=== PATIENT | female | born 1985 | race African-American/Black ===

== ENCOUNTER 2016-11-02 00:13 | Emergency (ER) | payer MEDICAID ==
[~2016-11-02] VITALS: Ht 170.2 cm; Wt 89.8 kg
[~2016-11-02 00:13] MED LIST: HYDR-971 PO; LEVO125T5 PO; MULT1TAB52 PO; NAPR500T3 PO; PENI500T PO; TRAM50TA PO
[2016-11-02] MEDS ORDERED: IV NORMAL SALINE 1,000ML 1,000 ML IV SCH (00:15)
--- NOTE | 2016-11-02 00:35 | EKG ---
[address] [address] Test Date: 2016-11-02 Test Time: 00:33:54 Pat Name: ALPESH WALTERS Department: Room: Gender: F Piping Supervisor: SELENE : 1985 Requested By: MICHAEL ALCARAZ Order Number: [id number] Reading MD: Measurements Intervals [place] Rate: 94 P: 51 NC: 156 QRS: 49 QRSD: 94 T: 51 QT: 368 QTc: 466 Interpretive Statements SINUS RHYTHM NORMAL ECG RI6.01 Unconfirmed report Compared to ECG 09/15/2015 10:52:36 No significant changes
[2016-11-02 00:41] LABS: BASO # 0.1 x10^3/uL (0.0-0.2); BASO % 1 % (0-3); EOS # 0.1 x10^3/uL (0.0-0.7); EOS % 2 % (0-3); HEMATOCRIT 42.8 % (36.0-47.0); HEMOGLOBIN 14.2 g/dL (12.0-15.5); LYMPH # 3.6 x10^3/uL (1.0-4.8); LYMPH % 53 % (24-48); MEAN CORPUSCULAR HEMOGLOBIN 29 pg (25-35); MEAN CORPUSCULAR HGB CONC 33 g/dL (31-37); MEAN CORPUSCULAR VOLUME 89 fL (79-100); MONO # 0.4 x10^3/uL (0.0-1.1); MONO % 6 % (0-9); NEUT # 2.6 x10^3uL (1.8-7.7); NEUT % 38 % (31-73); PLATELET COUNT 317 x10^3/uL (140-400); RED BLOOD COUNT 4.82 x10^6/uL (3.50-5.40); RED CELL DISTRIBUTION WIDTH 13.5 % (11.5-14.5); WHITE BLOOD COUNT 6.9 x10^3/uL (4.0-11.0)
[2016-11-02] MEDS ORDERED: DEXTROSE 50% 25 GM / 50ML DISP.SYRIN. IV ONE (00:45)
[2016-11-02 00:53] LABS: ALBUMIN 3.6 g/dL (3.4-5.0); CALCIUM 8.2 mg/dL (8.5-10.1); DIRECT BILIRUBIN 0.1 mg/dL (0.0-0.2); GFR 77.7; POTASSIUM 3.4 mmol/L (3.5-5.1); TOTAL BILIRUBIN 0.2 mg/dL (0.2-1.0); TOTAL PROTEIN 7.8 g/dL (6.4-8.2)
[2016-11-02 00:55] LABS: ACETAMIN < 2.0 mcg/mL (10-30); ETHANOL 192 mg/dL (0-10); SALIC 2.8 mg/dL (2.8-20.0)
[2016-11-02 01:26] LABS: BARBITURATES NEG (NEG); BENZODIAZEPINES NEG (NEG); CANNABINOIDS NEG (NEG); COCAINE NEG (NEG); METHADONE NEG (NEG); OPIATES POS (NEG); PHENCYCLIDINE NEG (NEG)
[2016-11-02] MEDS ORDERED: CLON0.5T3 PO (01:26)
[2016-11-02 01:27] LABS: AMPHETAMINE/METHAMPHETAMINE NEG (NEG)
--- NOTE | 2016-11-02 01:37 | PHYS DOC ---
Past History Past Medical History: Bipolar, Hyperthyroid, UTI Past Surgical History: Tubal ligation Alcohol Use: None Drug Use: None Adult General Chief Complaint Chief Complaint: OVERDOSE HPI HPI 31-year-old female presents via EMS after she passed out at home. Patient denies taking any illicit drugs. She does admit to drinking alcohol. She states she has not had anything to eat all day. Patient admits that there is quite a bit of stress in her life since moving here from [place]. She denies any suicidal or homicidal ideation. EMS reports pinpoint pupils and unresponsiveness on their arrival. They gave her a total of 2 mg of Narcan in route with only limited response. Family provided the majority of the history and states that she has been out of her prescription medications for close to a year which included Synthroid. [] Review of Systems Review of Systems Constitutional: Denies fever or chills [] Eyes: Denies change in visual acuity, redness, or eye pain [] HENT: Denies nasal congestion or sore throat [] Respiratory: Denies cough or shortness of breath [] Cardiovascular: No additional information not addressed in HPI [] GI: Denies abdominal pain, nausea, vomiting, bloody stools or diarrhea [] : Denies dysuria or hematuria [] Musculoskeletal: Denies back pain or joint pain [] Integument: Denies rash or skin lesions [] Neurologic: Denies headache, focal weakness or sensory changes [] Endocrine: Denies polyuria or polydipsia [] Current Medications Current Medications Current Medications Medications (Trade) Dose Ordered Sig/Chitra Start Time Stop Time Status Last Admin Dose Admin Dextrose 25 gm 1X ONCE 11/02/16 00:45 11/02/16 00:46 UNV Sodium Chloride (Iv Sodium Chloride 0.9% 1,000ml) 1,000 ml @ 1,000 mls/hr Q1H 11/02/16 00:15 11/02/16 01:14 UNV Allergies Allergies Allergies Coded Allergies Type Severity Reaction Last Updated Verified iodine Allergy Intermediate Itching 06/14/15 Yes diphenhydramine Allergy Unknown Swelling 11/15/15 No Physical Exam Physical Exam Constitutional: Well developed, well nourished, no acute distress, non-toxic appearance. [] HENT: Normocephalic, atraumatic, bilateral external ears normal, oropharynx moist, no oral exudates, nose normal. [] Eyes: PERRLA, EOMI, conjunctiva normal, no discharge. [] Neck: Normal range of motion, no tenderness, supple, no stridor. [] Cardiovascular:Heart rate regular rhythm, no murmur [] Lungs & Thorax: Bilateral breath sounds clear to auscultation [] Abdomen: Bowel sounds normal, soft, no tenderness, no masses, no pulsatile masses. [] Skin: Warm, dry, no erythema, no rash. [] Back: No tenderness, no CVA tenderness. [] Extremities: No tenderness, no cyanosis, no clubbing, ROM intact, no edema. [] Neurologic: Alert and oriented X 3, normal motor function, normal sensory function, no focal deficits noted. [] Psychologic: Affect normal, judgement normal, mood normal. [] Current Patient Data Lab Results Laboratory Tests Test 11/02/16 00:15 11/02/16 00:35 11/02/16 00:42 White Blood Count 6.9x10^3/uL (4.0-11.0) Red Blood Count 4.82x10^6/uL (3.50-5.40) Hemoglobin 14.2g/dL (12.0-15.5) Hematocrit 42.8% (36.0-47.0) Mean Corpuscular Volume 89fL (79-100) Mean Corpuscular Hemoglobin 29pg (25-35) Mean Corpuscular Hemoglobin Concent 33g/dL (31-37) Red Cell Distribution Width 13.5% (11.5-14.5) Platelet Count 317x10^3/uL (140-400) Neutrophils (%) (Auto) 38% (31-73) Lymphocytes (%) (Auto) 53% (24-48) H Monocytes (%) (Auto) 6% (0-9) Eosinophils (%) (Auto) 2% (0-3) Basophils (%) (Auto) 1% (0-3) Neutrophils # (Auto) 2.6x10^3uL (1.8-7.7) Lymphocytes # (Auto) 3.6x10^3/uL (1.0-4.8) Monocytes # (Auto) 0.4x10^3/uL (0.0-1.1) Eosinophils # (Auto) 0.1x10^3/uL (0.0-0.7) Basophils # (Auto) 0.1x10^3/uL (0.0-0.2) Prothrombin Time 10.1SEC (9.4-11.4) Prothrombin Time INR 1.0 (0.9-1.1) PTT 24SEC (23-33) Sodium Level 146mmol/L (136-145) H Potassium Level 3.4mmol/L (3.5-5.1) L Chloride Level 108mmol/L (98-107) H Carbon Dioxide Level 29mmol/L (21-32) Anion Gap 9 (6-14) Blood Urea Nitrogen 10mg/dL (7-20) Creatinine 1.0mg/dL (0.6-1.0) Estimated GFR (Cockcroft-Gault) 77.7 Glucose Level 77mg/dL (70-99) Calcium Level 8.2mg/dL (8.5-10.1) L Magnesium Level 2.0mg/dL (1.8-2.4) Total Bilirubin 0.2mg/dL (0.2-1.0) Direct Bilirubin 0.1mg/dL (0.0-0.2) Aspartate Amino Transferase (AST) 19U/L (15-37) Alanine Aminotransferase (ALT) 22U/L (14-59) Alkaline Phosphatase 56U/L (46-116) Total Protein 7.8g/dL (6.4-8.2) Albumin 3.6g/dL (3.4-5.0) Salicylates Level 2.8mg/dL (2.8-20.0) Salicylate Last Dose Date oct 25 Salicylate Last Dose Time 2300 Acetaminophen Level < 2.0mcg/mL (10-30) L Acetaminophen Last Dose Date oct 25 Acetaminophen Last Dose Time 2300 Ethyl Alcohol Level 192mg/dL (0-10) H Glucose (Fingerstick) 54mg/dL (70-99) L Urine Opiates Screen Pos (NEG) Urine Methadone Screen Neg (NEG) Urine Barbiturates Neg (NEG) Urine Phencyclidine Screen Neg (NEG) Urine Amphetamine/Methamphetamine Neg (NEG) Urine Benzodiazepines Screen Neg (NEG) Urine Cocaine Screen Neg (NEG) Urine Cannabinoids Screen Neg (NEG) Urine Ethyl Alcohol Pos (NEG) EKG EKG [] Radiology/Procedures Radiology/Procedures [] Impressions: PROCEDURE: HEAD WO CONTRAST INDICATION: Altered mental status COMPARISON: April 08, 2016 TECHNIQUE: Axial CT images obtained through the head. One or more of the following individualized dose reduction techniques were utilized for this examination: 1. Automated exposure control; 2. Adjustment of the mA and/or kV according to patient size; 3. Use of iterative reconstruction technique. FINDINGS: No midline shift. Ventricles and sulci within normal limits in size for the patients age. Basilar cistern patent. No gross hemorrhage or intracranial mass. No displaced skull fracture. IMPRESSION: No acute intracranial hemorrhage. Course & Med Decision Making Course & Med Decision Making Pertinent Labs and Imaging studies reviewed. (See chart for details) [ED course: Evaluation reveals a 31-year-old female who does have opiates in her system. She also was noted to have a blood sugar in the 50's when she arrived. One amp of D50 was given to the patient with excellent response. As soon as her blood sugar was increased her mental status improved. Patient has multiple family members here.] Dragon Disclaimer Dragon Disclaimer This chart was dictated in whole or in part using Voice Recognition software in a busy, high-work load, and often noisy Emergency Department environment. It may contain unintended and wholly unrecognized errors or omissions. Departure Departure: Impression: Primary Impression: Hypoglycemia Additional Impression: Altered mental status Referrals: LAURA MORALES (PCP) Patient Instructions: Hypoglycemia (Low Blood Sugar) Additional Instructions: Thank you for allowing us to participate in your care today. Followup with your primary care physician in 3 days if your symptoms do not improve. Return to the emergency department you have any new or concerning findings. This should be evaluated by the primary care physician and any necessary consulting services for continued management within a few days after discharge. Return to emergency room if you have any new or concerning symptoms including but not limited to fever, chills, nausea, vomiting, intractable pain, any new rashes, chest pain, shortness of air, uncontrolled bleeding, difficulty breathing, and/or vision loss. You may have been prescribed medication that can change in your level of thinking and ability to operate machinery. These medications include hydrocodone and Ativan. Also, Benadryl has been known to do this as well. Be sure to check with your pharmacist and ask if the medications you've prescribed can affect your level of consciousness. I recommend not operating heavy machinery or driving while on medication such as these. Problem Qualifiers Additional Impression: Altered mental status Altered mental status type: unspecified Qualified Code: R41.82 - Altered mental status, unspecified MICHAEL ALCARAZ DO Nov 02, 2016 01:37
[2016-11-02 01:44] VITALS: BP 129/93
--- NOTE | 2016-11-02 02:40 | RAD ---
INDICATION: Altered mental status COMPARISON: April 08, 2016 TECHNIQUE: Axial CT images obtained through the head. One or more of the following individualized dose reduction techniques were utilized for this examination: 1. Automated exposure control; 2. Adjustment of the mA and/or kV according to patient size; 3. Use of iterative reconstruction technique. FINDINGS: No midline shift. Ventricles and sulci within normal limits in size for the patients age. Basilar cistern patent. No gross hemorrhage or intracranial mass. No displaced skull fracture. IMPRESSION: No acute intracranial hemorrhage. Electronically signed by: Venkatesh Culver (Nov 02, 2016 02:39:05)
--- NOTE | 2016-11-02 07:40 | RAD ---
Portable chest, 11/02/2016: History: Altered mental status, syncope, possible overdose Comparison is made to a study from 03/21/2016. The heart size and pulmonary vascularity are normal. No pulmonary infiltrates are seen. There is no evidence of pleural fluid. IMPRESSION: No acute cardiopulmonary abnormality is detected.
== END 2016-11-02 02:50 | disposition home or self-care (01) ==
LOC: ER 00:13
DX: R41.82 Altered mental status, unspecified (principal); E16.2 Hypoglycemia, unspecified; E03.9 Hypothyroidism, unspecified; Z87.440 Personal history of urinary (tract) infections; F31.9 Bipolar disorder, unspecified; Z88.8 Allergy status to other drugs, medicaments and biological substances; Z91.041 Radiographic dye allergy status
CPT/HCPCS: 36415; 70450; 71010; 80048; 80076; 80305; 80320; 82947; 83735; 85027; 85610; 85730; 93005; 96361; 96374; 99285; G6038; G0480; G0481; 80196; J7030

== ENCOUNTER 2016-11-04 04:17 | Emergency (ER) | payer MEDICAID ==
[~2016-11-04] VITALS: Ht 170.2 cm; Wt 90.1 kg
[~2016-11-04 04:17] MED LIST changes: +CLON0.5T3 PO
[2016-11-04 04:18] VITALS: BP 137/82
[2016-11-04] MEDS ORDERED: LIDO:MAALOX 1:1 20 ML SINGLE DOSE PO ONE (05:00)
--- NOTE | 2016-11-04 05:30 | RAD ---
PROCEDURE Ultrasound of the abdomen limited HISTORY Right upper quadrant pain TECHNIQUE COMPARISON Comparison with a CT from March 2016 FINDINGS Pancreas was normal in appearance. Vena cava and aorta are unremarkable. A liver lesion is not identified. The gallbladder is somewhat contracted. The gallbladder wall is mildly thickened. There are no gallstones. Common duct was normal measuring 4 millimeters. Right kidney is 13.3 centimeters in length without a mass or hydronephrosis. IMPRESSION Contracted gallbladder with mild thickening of the gallbladder wall No gallstones noted A focal liver lesion is not identified. Electronically signed by: George Tanner MD (Nov 04, 2016 05:28:43)
[2016-11-04 05:38] LABS: BARBITURATES NEG (NEG); BENZODIAZEPINES NEG (NEG); CANNABINOIDS NEG (NEG); COCAINE NEG (NEG); METHADONE NEG (NEG); OPIATES POS (NEG); PHENCYCLIDINE NEG (NEG)
[2016-11-04 05:41] LABS: BASO % 0 % (0-3); EOS # 0.1 x10^3/uL (0.0-0.7); EOS % 1 % (0-3); HEMATOCRIT 40.9 % (36.0-47.0); HEMOGLOBIN 13.8 g/dL (12.0-15.5); LYMPH # 0.7 x10^3/uL (1.0-4.8); LYMPH % 9 % (24-48); MEAN CORPUSCULAR HEMOGLOBIN 30 pg (25-35); MEAN CORPUSCULAR HGB CONC 34 g/dL (31-37); MEAN CORPUSCULAR VOLUME 88 fL (79-100); MONO # 0.4 x10^3/uL (0.0-1.1); MONO % 5 % (0-9); NEUT # 6.6 x10^3uL (1.8-7.7); NEUT % 85 % (31-73); PLATELET COUNT 246 x10^3/uL (140-400); RED BLOOD COUNT 4.65 x10^6/uL (3.50-5.40); RED CELL DISTRIBUTION WIDTH 13.3 % (11.5-14.5); WHITE BLOOD COUNT 7.8 x10^3/uL (4.0-11.0)
[2016-11-04 05:42] LABS: BACTERIA,URINE MOD /HPF (0-FEW); BILIRUBIN,URINE NEG (NEG); CLARITY,URINE HAZY; COLOR,URINE YELLOW; GLUCOSE,URINE NEG (NEG); NITRITE,URINE NEG (NEG); SQUAMOUS EPITHELIAL CELL,UR FEW /LPF; UROBILINOGEN,URINE 0.2 mg/dL (0.2 mg/dL)
[2016-11-04 05:45] LABS: AMPHETAMINE/METHAMPHETAMINE NEG (NEG)
[2016-11-04 05:57] LABS: ALBUMIN 3.4 g/dL (3.4-5.0); ALBUMIN/GLOBULIN RATIO 0.8 (1.0-1.7); CALCIUM 8.3 mg/dL (8.5-10.1); CREATININE 0.9 mg/dL (0.6-1.0); GFR 87.8; POTASSIUM 3.1 mmol/L (3.5-5.1); TOTAL PROTEIN 7.5 g/dL (6.4-8.2)
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
== END 2016-11-04 06:25 | disposition home or self-care (01) ==
LOC: ER 04:17
DX: R10.13 Epigastric pain (principal); Z88.8 Allergy status to other drugs, medicaments and biological substances; Z91.041 Radiographic dye allergy status
CPT/HCPCS: 36415; 76705; 80053; 80305; 80320; 81001; 82150; 83690; 85027; G0480; G0481; 99285-25